=== PATIENT | male | born 1965 | race Caucasian/White ===

== ENCOUNTER 2021-06-09 19:04 | Emergency (ER) | payer MEDICAID, OTHER ==
--- NOTE | 2021-06-09 19:26 | ED Physician Documentation ---
History of Present Illness - Stated complaint Stated Complaint: LT FOOT PX/TRIPPED - Chief complaint Chief Complaint: Trauma Ext - History obtained from History obtained from: Patient - History of Present Illness Pain level max: 6 Pain level now: 4 - Additonal information Additional information: 55-year-old male presents to the emergency department with a left ankle injury. He states that he was standing on a stick when he fell and rolled the left ankle. Occurred several hours prior to arrival. Worse with movement, better with rest. Took Motrin at home prior to arrival. Has swelling to the ankle. No other injuries Review of Systems Constitutional: denies: Fever, Chills GI: denies: Vomiting, Diarrhea Skin: denies: Rash Musculoskeletal: denies: Neck pain, Back pain Neurologic: denies: Headache PD PAST MEDICAL HISTORY - Past Medical History Past Medical History: Yes Endocrine/Autoimmune: HyPOthyroidism - Past Surgical History Past Surgical History: Yes General: Cholecystectomy, Bowel surgery - Present Medications Home Medications: Ambulatory Orders Medication Instructions Recorded Confirmed Ibuprofen [Motrin] 400 mg PO Q6HR PRN 06/09/21 06/09/21 Levothyroxine [Synthroid] 150 mcg PO DAILY 06/09/21 06/09/21 Sildenafil Citrate [Sildenafil] 20 mg PO DAILY PRN 06/09/21 06/09/21 - Allergies Allergies/Adverse Reactions: Allergies Allergy/AdvReac Type Severity Reaction Status Date / Time No Known Drug Allergies Allergy Verified 06/09/21 19:12 - Social History Does the pt smoke?: No Smoking Status: Never smoker Does the pt drink ETOH?: No Does the pt have substance abuse?: No - Immunizations Immunizations are current?: Yes PD ED PE NORMAL - Vitals Vital signs reviewed: Yes - General General: Alert and oriented X 3, No acute distress - HEENT HEENT: Moist mucous membranes - Derm Derm: Warm and dry - Extremities Extremities: Other (Tender to palpation over the left lateral malleolus. Neurovascular intact. Mild swelling. Otherwise normal examination of the foot, ankle and lower extremity.) - Neuro Neuro: Alert and oriented X 3 - Psych Psych: Normal mood, Normal affect Results - Vitals Vitals: Vital Signs - 24 hr 06/09/21 06/09/21 19:08 20:03 Temperature 36.4 C L 36.5 C Heart Rate 62 61 Respiratory 14 15 Rate Blood Pressure 109/66 110/68 O2 Saturation 96 96 Oxygen O2 Source Room air - Rads (name of study) Left ankle x-ray Radiology: Final report received, EMP read contemporaneously, See rad report PD MEDICAL DECISION MAKING - ED course Complexity details: reviewed results, re-evaluated patient, considered differential, d/w patient ED course: No acute findings on x-ray. Appears to be a sprain. Placed in a air splint for comfort. Neurovascularly intact. Declines pain medication here or for home. States he has crutches if he needs them. Patient counseled regarding signs and symptoms for which I believe and urgent re-evaluation would be necessary. Patient with good understanding of and agreement to plan and is comfortable going home at this time This document was made in part using voice recognition software. While efforts are made to proofread this document, sound alike and grammatical errors may occur. Departure - Departure Disposition: 01 Home, Self Care Clinical Impression: Ankle injury Qualifiers: Encounter type: initial encounter Laterality: left Qualified Code(s): S99.912A - Unspecified injury of left ankle, initial encounter Condition: Good Instructions: ED Sprain Ankle Follow-Up: your,doctor in 1 week [Other] Comments: If you are still having pain in 1 week, you should follow-up with your doctor for repeat evaluation. Your x-rays do not show any acute abnormalities today. You can use Motrin or Tylenol as needed for pain. Wear the splint as needed for comfort. Discharge Date/Time: 06/09/21 20:03
--- NOTE | 2021-06-09 19:37 | XRAY Report ---
PROCEDURE: Ankle 3 View LT INDICATIONS: Trauma TECHNIQUE: 3 views of the ankle were acquired. COMPARISON: None. FINDINGS: BONES: No acute, displaced fracture or dislocation. The ankle mortise is maintained on these nonstre ssed views. SOFT TISSUES: Lateral soft tissue swelling. IMPRESSION: 1.No acute osseous abnormality. Reviewed by: Krishna Hsu MD on 06/09/2021 7:35 PM PDT Approved by: Krishna Hsu MD on 06/09/2021 7:35 PM PDT Station ID: [id number]
[2021-06-09 20:05] VITALS: BP 110/68
== END 2021-06-09 20:03 | disposition home or self-care (01) ==
LOC: ED 19:04
DX: S99.912A Unspecified injury of left ankle, initial encounter (principal); W19.XXXA Unspecified fall, initial encounter; Y93.89 Activity, other specified
CPT/HCPCS: 99282; 99283